=== PATIENT | male | born 1965 | race Caucasian/White ===

== ENCOUNTER 2018-02-15 05:57 | Day surgery (SDC) | payer BC, OTHER ==
[2018-02-15] MEDS ORDERED: DEXAMETHASONE SOD PHOSPHATE 10 MG INJ IV ONE (05:58)
[2018-02-15] MEDS ORDERED: BUPIVACAINE PF 0.5% 30 ML VIAL ONE (06:19)
[2018-02-15] MEDS ORDERED: IOHEXOL-240 MG , 50 ML VIAL IV ONE (06:19)
[2018-02-15] MEDS ORDERED: DEXAMETHASONE SOD PHOSPHATE 10 MG INJ EPI ONE (08:00)
== END 2018-02-15 07:10 | disposition home or self-care (01) ==
LOC: DS 05:57
PROVIDERS: ATTEND Anesthesiology
DX: M47.26 Other spondylosis with radiculopathy, lumbar region (principal); M51.26 Other intervertebral disc displacement, lumbar region; M79.604 Pain in right leg; G89.29 Other chronic pain; F11.20 Opioid dependence, uncomplicated; I10 Essential (primary) hypertension; I25.10 Atherosclerotic heart disease of native coronary artery without angina pectoris; F17.210 Nicotine dependence, cigarettes, uncomplicated; Z79.899 Other long term (current) drug therapy; Z98.890 Other specified postprocedural states
CPT/HCPCS: 64483; 64484; 76000; A4663; J1100 ×2; 70030-TC; J3490; Q9966